=== PATIENT | female | born 1965 | race African-American/Black ===

== ENCOUNTER 2022-06-19 09:49 | Day surgery (SDC) | payer OTHER ==
[2022-06-15 13:20] VITALS: BMI 26.7
[2022-06-19 13:59] VITALS: TEMP 97.1
[2022-06-19 14:03] VITALS: BP 129/82; PULSE 80; RESP 18
== END 2022-06-19 13:15 | disposition home or self-care (01) ==
LOC: FASU-ENDO 09:49
PROVIDERS: ATTEND Internal Medicine Gastroenterology
PROC: 0DJD8ZZ Inspection of Lower Intestinal Tract, Via Natural or Artificial Opening Endoscopic (ICD-10-PCS; principal; 2022-06-19 12:15)
DX: Z12.11 Encounter for screening for malignant neoplasm of colon (principal)
CPT/HCPCS: 82962